=== PATIENT | male | born 1975 | race Caucasian/White ===

== ENCOUNTER → 2016-07-05 | Outpatient (CLI) | payer OTHER ==
--- NOTE | 2016-07-05 14:24 | XR ---
EXAMINATION TYPE: XR chest 2V DATE OF EXAM: 07/05/2016 1:55 PM COMPARISON: Prior chest x-ray 28 September 2014 HISTORY: COPD TECHNIQUE: Frontal and lateral views of the chest are obtained. FINDINGS: There is no focal air space opacity, pleural effusion, or pneumothorax seen. The cardiac silhouette size is within normal limits. Prominent lung volumes are again noted. There is a spinal curvature as on previous exam. The osseous structures are intact. IMPRESSION: No acute cardiopulmonary process.
== END ==
LOC: RADXRMAIN 13:47
PROVIDERS: ATTEND Internal Medicine Sleep Medicine
DX: J44.9 Chronic obstructive pulmonary disease, unspecified (principal)
CPT/HCPCS: 71020

== ENCOUNTER 2020-06-24 23:46 | Inpatient (IN) | payer OTHER ==
[2020-06-25] MEDS ORDERED: KETOROLAC 15 MG/ML 1 ML VIAL IVP STA (00:05)
[2020-06-25] MEDS ORDERED: MORPHINE SULFATE 4 MG/ML SYRINGE IV STA (00:05)
[2020-06-25] MEDS ORDERED: ONDANSETRON 4 MG/2 ML VIAL IVP STA (00:05)
[2020-06-25] MEDS ORDERED: SODIUM CHLORIDE 0.9% 1,000 ML IV STA (00:05)
--- NOTE | 2020-06-25 00:39 | ED ---
Abdominal Pain HPI - General Chief Complaint: Abdominal Pain Stated Complaint: abd pain Time Seen by Provider: 06/24/20 23:49 Source: EMS, RN notes reviewed, old records reviewed Mode of arrival: EMS Limitations: no limitations - History of Present Illness Initial Comments: This is a 44-year-old male DF for evaluation patient Dese for evaluation of darian re abdominal pain. Patient has persistent severe abdominal pain here in the ER he feels he was more sudden onset than anything mild nausea no vomiting, patient denies fever. Patient's pain again did start yesterday but was significantly worse tonight MD Complaint: abdominal pain -: days(s) Location: RUQ, RLQ Radiation: RLQ Severity: severe Severity scale (1-10): 8 Quality: stabbing Consistency: constant Improves With: nothing Worsens With: eating Context: other (none) Associated Symptoms: nausea Treatments Prior to Arrival: other (none) - Related Data Home Medications Medication Instructions Recorded Confirmed Diazepam [Valium] 10 mg PO BID PRN 09/28/14 06/25/20 HYDROcodone/APAP 10-325MG [[place] 1 tab PO Q6H PRN 09/28/14 06/25/20 10-325] Albuterol Nebulized [Ventolin 2.5 mg INHALATION RT-QID 06/25/20 06/25/20 Nebulized] Albuterol Sulfate [Proair Hfa] 2 puff INHALATION RT-Q4H PRN 06/25/20 06/25/20 Budesonide-Formot 160-4.5 Mcg 2 puff INHALATION RT-BID 06/25/20 06/25/20 [Symbicort 160-4.5 Mcg Inhaler] Cetirizine HCl 10 mg PO HS PRN 06/25/20 06/25/20 Lurasidone HCl [Latuda] 60 mg PO HS 06/25/20 06/25/20 Methylphenidate HCl [Ritalin] 20 mg PO TID 06/25/20 06/25/20 lisinopriL 20 mg PO DAILY 06/25/20 06/25/20 Previous Rx's Medication Instructions Recorded Acetaminophen Tab [Tylenol Tab] 1,000 mg PO Q6HR PRN #30 tablet 06/27/20 Amoxic-Pot Clav 875-125Mg 1 tab PO BID #10 tab 06/27/20 [Augmentin 875-125] Ibuprofen [Motrin] 600 mg PO Q8HR PRN #30 tab 06/27/20 Allergies Allergy/AdvReac Type Severity Reaction Status Date / Time No Known Allergies Allergy Verified 06/25/20 07:48 Review of Systems ROS Statement: Those systems with pertinent positive or pertinent negative responses have been documented in the HPI. ROS Other: All systems not noted in ROS Statement are negative. Past Medical History Past Medical History: COPD Additional Past Medical History / Comment(s): chronic back pain History of Any Multi-Drug Resistant Organisms: None Reported Additional Past Surgical History / Comment(s): abdominal surgery- removal of for eign object. Past Psychological History: No Psychological Hx Reported Smoking Status: Current every day smoker Past Alcohol Use History: Rare Past Drug Use History: None Reported - Past Family History Mother Family Medical History: Diabetes Mellitus Father Family Medical History: No Reported History Additional Family Medical History / Comment(s): Father is healthy General Exam Limitations: no limitations General appearance: alert, in no apparent distress, anxious Head exam: Present: atraumatic, normocephalic, normal inspection Eye exam: Present: normal appearance, PERRL, EOMI. Absent: scleral icterus, conjunctival injection, periorbital swelling ENT exam: Present: normal exam, mucous membranes moist Neck exam: Present: normal inspection. Absent: tenderness, meningismus, lymphadenopathy Respiratory exam: Present: normal lung sounds bilaterally. Absent: respiratory distress, wheezes, rales, rhonchi, stridor Cardiovascular Exam: Present: regular rate, normal rhythm, normal heart sounds. Absent: systolic murmur, diastolic murmur, rubs, gallop, clicks GI/Abdominal exam: Present: soft, tenderness (Right lower quadrant), normal bowel sounds. Absent: distended, guarding, rebound, rigid Extremities exam: Present: normal inspection, full ROM, normal capillary refill. Absent: tenderness, pedal edema, joint swelling, calf tenderness Back exam: Present: normal inspection Neurological exam: Present: alert, oriented X3, CN II-XII intact Psychiatric exam: Present: normal affect, normal mood Skin exam: Present: warm, dry, intact, normal color. Absent: rash Course Vital Signs 06/25/20 06/25/20 06/25/20 00:00 06:37 11:46 Temperature 98 F 99 F 98.3 F Pulse Rate 80 94 Pulse Rate [ 78 Pulse Oximetery ] Respiratory 19 18 18 Rate Blood Pressure 122/72 113/67 Blood Pressure 110/64 [Right Arm] O2 Sat by Pulse 98 97 96 Oximetry 06/25/20 15:47 Temperature 99.5 F Pulse Rate Pulse Rate [ 88 Pulse Oximetery ] Respiratory 16 Rate Blood Pressure Blood Pressure 121/69 [Right Arm] O2 Sat by Pulse 93 L Oximetry - Reevaluation(s) Reevaluation #1: Medical record is reviewed Patient has persistent pain here in the ER Spoke patient regarding findings and results questions answered - Consultations Consultation #1: Spoke with on-call surgery who will admit the patient Medical Decision Making - Medical Decision Making Mailed ER with severe abdominal pain. Patient has acute appendicitis, patient placed on antibiotics control will be admitted for surgical evaluation and management - Lab Data Result diagrams: 06/27/20 17:11 06/27/20 07:27 Lab Results 06/25/20 06/25/20 06/25/20 Range/Units 00:13 00:13 02:12 WBC 15.1 H (3.8-10.6) k/uL RBC 4.23 L (4.30-5.90) m/uL Hgb 13.0 (13.0-17.5) gm/dL Hct 37.5 L (39.0-53.0) % MCV 88.6 (80.0-100.0) fL MCH 30.7 (25.0-35.0) pg MCHC 34.7 (31.0-37.0) g/dL RDW 13.1 (11.5-15.5) % Plt Count 231 (150-450) k/uL MPV 7.7 Neutrophils % 92 % Lymphocytes % 5 % Monocytes % 3 % Eosinophils % 0 % Basophils % 0 % Neutrophils # 13.9 H (1.3-7.7) k/uL Lymphocytes # 0.7 L (1.0-4.8) k/uL Monocytes # 0.5 (0-1.0) k/uL Eosinophils # 0.0 (0-0.7) k/uL Basophils # 0.0 (0-0.2) k/uL Sodium 136 L (137-145) mmol/L Potassium 4.1 (3.5-5.1) mmol/L Chloride 104 (98-107) mmol/L Carbon Dioxide 23 (22-30) mmol/L Anion Gap 9 mmol/L BUN 17 (9-20) mg/dL Creatinine 1.08 (0.66-1.25) mg/dL Est GFR (CKD-EPI)AfAm >90 (>60 ml/min/1.73 sqM) Est GFR (CKD-EPI)NonAf 82 (>60 ml/min/1.73 sqM) Glucose 114 H (74-99) mg/dL Calcium 9.4 (8.4-10.2) mg/dL Total Bilirubin 0.7 (0.2-1.3) mg/dL AST 21 (17-59) U/L ALT 20 (4-49) U/L Alkaline Phosphatase 64 (38-126) U/L Total Protein 6.4 (6.3-8.2) g/dL Albumin 3.8 (3.5-5.0) g/dL Amylase 46 (30-110) U/L Lipase 28 (23-300) U/L Urine Color Yellow Urine Appearance Cloudy (Clear) Urine pH 7.0 (5.0-8.0) Ur Specific [place] 1.050 H (1.001-1.035) Urine Protein Trace H (Negative) Urine Glucose (UA) Negative (Negative) Urine Ketones Negative (Negative) Urine Blood Negative (Negative) Urine Nitrite Negative (Negative) Urine Bilirubin Negative (Negative) Urine Urobilinogen <2.0 (<2.0) mg/dL Ur Leukocyte Esterase Negative (Negative) Urine RBC 4 (0-5) /hpf Urine WBC 2 (0-5) /hpf Urine Bacteria Few H (None) /hpf Urine Mucus Occasional H (None) /hpf Coronavirus (PCR) (Not Detectd) 06/25/20 Range/Units 02:12 WBC (3.8-10.6) k/uL RBC (4.30-5.90) m/uL Hgb (13.0-17.5) gm/dL Hct (39.0-53.0) % MCV (80.0-100.0) fL MCH (25.0-35.0) pg MCHC (31.0-37.0) g/dL RDW (11.5-15.5) % Plt Count (150-450) k/uL MPV Neutrophils % % Lymphocytes % % Monocytes % % Eosinophils % % Basophils % % Neutrophils # (1.3-7.7) k/uL Lymphocytes # (1.0-4.8) k/uL Monocytes # (0-1.0) k/uL Eosinophils # (0-0.7) k/uL Basophils # (0-0.2) k/uL Sodium (137-145) mmol/L Potassium (3.5-5.1) mmol/L Chloride (98-107) mmol/L Carbon Dioxide (22-30) mmol/L Anion Gap mmol/L BUN (9-20) mg/dL Creatinine (0.66-1.25) mg/dL Est GFR (CKD-EPI)AfAm (>60 ml/min/1.73 sqM) Est GFR (CKD-EPI)NonAf (>60 ml/min/1.73 sqM) Glucose (74-99) mg/dL Calcium (8.4-10.2) mg/dL Total Bilirubin (0.2-1.3) mg/dL AST (17-59) U/L ALT (4-49) U/L Alkaline Phosphatase (38-126) U/L Total Protein (6.3-8.2) g/dL Albumin (3.5-5.0) g/dL Amylase (30-110) U/L Lipase (23-300) U/L Urine Color Urine Appearance (Clear) Urine pH (5.0-8.0) Ur Specific [place] (1.001-1.035) Urine Protein (Negative) Urine Glucose (UA) (Negative) Urine Ketones (Negative) Urine Blood (Negative) Urine Nitrite (Negative) Urine Bilirubin (Negative) Urine Urobilinogen (<2.0) mg/dL Ur Leukocyte Esterase (Negative) Urine RBC (0-5) /hpf Urine WBC (0-5) /hpf Urine Bacteria (None) /hpf Urine Mucus (None) /hpf Coronavirus (PCR) Not Detected (Not Detectd) - Radiology Data Radiology results: report reviewed (CT abdomen and pelvis positive for acute appendicitis), image reviewed Disposition Clinical Impression: Abdominal pain, Acute appendicitis Disposition: ADMITTED IP TO THIS [facility] Condition: Good Is patient prescribed a controlled substance at d/c from ED?: No
[2020-06-25 00:53] LABS: Basophils % (A) 0 %; Eosinophils % (A) 0 %; HCT 37.5 % (39.0-53.0); Lymphocytes # (A) 0.7 k/uL (1.0-4.8); Lymphocytes % (A) 5 %; MCH 30.7 pg (25.0-35.0); MCHC 34.7 g/dL (31.0-37.0); MCV 88.6 fL (80.0-100.0); Mean Platelet Volume 7.7; Monocytes # (A) 0.5 k/uL (0-1.0); Monocytes % (A) 3 %; Neutrophils # (A) 13.9 k/uL (1.3-7.7); Neutrophils % (A) 92 %; Platelet Count 231 k/uL (150-450); RBC 4.23 m/uL (4.30-5.90); RDW 13.1 % (11.5-15.5); WBC 15.1 k/uL (3.8-10.6)
--- NOTE | 2020-06-25 01:27 | CT ---
EXAM: CT Abdomen and Pelvis With Intravenous Contrast CLINICAL HISTORY: Pain. TECHNIQUE: Axial computed tomography images of the abdomen and pelvis with intravenous contrast. CTDI is with 20.67 mGy and DLP is 963.9 mGy-cm. This CT exam was performed using one or more of the following dose reduction techniques: automated exposure control, adjustment of the mA and/or kV according to patient size, and/or use of iterative reconstruction technique. Coronal and sagittal reformatted images were created and reviewed. COMPARISON: No relevant prior studies available. FINDINGS: Lung bases: Unremarkable. No mass. No consolidation. ABDOMEN: Liver: Unremarkable. No mass. Gallbladder and bile ducts: Unremarkable. No calcified stones. No ductal dilation. Pancreas: Unremarkable. No mass. No ductal dilation. Spleen: Unremarkable. No splenomegaly. Adrenals: Unremarkable. No mass. Kidneys and ureters: Unremarkable. No solid mass. No hydronephrosis. Stomach and bowel: Unremarkable. No obstruction. No mucosal thickening. PELVIS: Appendix: The distal portion of the appendix is abnormally enlarged at 11 mm in thickness and there is inflammation in the surrounding right lower quadrant fat. The findings are consistent with acute appendicitis. No abscess or extraluminal air. Bladder: Unremarkable. No mass. Reproductive: Unremarkable as visualized. ABDOMEN and PELVIS: Intraperitoneal space: See above. Bones/joints: No acute fracture. No dislocation. Soft tissues: Unremarkable. Vasculature: Unremarkable. No abdominal aortic aneurysm. Lymph nodes: Unremarkable. No enlarged lymph nodes. IMPRESSION: Acute appendicitis. <MYCVCSECTION> Communications: 06/25/20 01:29 Call Doctor Regarding Appendicitis, called Dr. MCNAMARA on 06/25 01:28 (-04:00)
[2020-06-25] MEDS ORDERED: ACETAMINOPHEN TAB 325 MG TAB PO PRN (01:29)
[2020-06-25] MEDS ORDERED: AMPICILLIN-SULBACTAM 3 GM in SODIUM CHLORIDE 0.9% 100 ML IVPB STA (01:29)
[2020-06-25] MEDS ORDERED: NALOXONE 0.4 MG/ML 1 ML VIAL IV PRN (01:29)
[2020-06-25 01:32] LABS: ALT 20 U/L (4-49); AST 21 U/L (17-59); African American GFR (CKD) >90 (>60 ml/min/1.73 sqM); Albumin 3.8 g/dL (3.5-5.0); Alkaline Phosphatase 64 U/L (38-126); Amylase 46 U/L (30-110); Anion Gap 9 mmol/L; Blood Urea Nitrogen 17 mg/dL (9-20); Calcium 9.4 mg/dL (8.4-10.2); Carbon Dioxide 23 mmol/L (22-30); Chloride 104 mmol/L (98-107); Glucose 114 mg/dL (74-99); Lipase 28 U/L (23-300); Non-African American GFR(CKD) 82 (>60 ml/min/1.73 sqM); Potassium 4.1 mmol/L (3.5-5.1); Sodium 136 mmol/L (137-145); Total Bilirubin 0.7 mg/dL (0.2-1.3); Total Protein 6.4 g/dL (6.3-8.2)
[2020-06-25] MEDS: MORPHINE SULFATE 4 MG/ML SYRINGE IV PRN ×3 (02:07→12:04)
[2020-06-25] MEDS: SODIUM CHLORIDE 0.9% 1,000 ML IV SCH ×3 (02:07→20:21)
[2020-06-25 02:26] LABS: Appearance,Urine Cloudy (Clear); Bacteria,Urine Few /hpf; Bilirubin,Urine Negative (Negative); Blood,Urine Negative (Negative); Color,Urine Yellow; Glucose,Urine (UA) Negative (Negative); Ketones,Urine Negative (Negative); Leukocyte Esterase,Urine Negative (Negative); Mucus,Urine Occasional /hpf; Nitrite,Urine Negative (Negative); Protein,Urine Trace (Negative); RBC,Urine 4 /hpf (0-5); Urobilinogen,Urine <2.0 mg/dL (<2.0); WBC,Urine 2 /hpf (0-5)
[2020-06-25] MEDS: AMPICILLIN-SULBACTAM 3 GM in SODIUM CHLORIDE 0.9% 100 ML IVPB SCH ×2 (09:31→23:20)
[2020-06-25] MEDS: ONDANSETRON 4 MG/2 ML VIAL IVP PRN ×2 (09:32→16:18)
[2020-06-25] MEDS ORDERED: GABAPENTIN 300 MG CAP PO PRN (15:30)
[2020-06-25] MEDS ORDERED: TAMSULOSIN 0.4 MG CAP.ER.24H PO PRN (15:30)
[2020-06-25] MEDS ORDERED: MELOXICAM 7.5 MG TAB PO PRN (15:33)
[2020-06-25] MEDS ORDERED: HEPARIN SODIUM,PORCINE/PF 5,000 UNIT/0.5 ML SYRINGE SQ PRN (15:33)
[2020-06-25] MEDS ORDERED: ACETAMINOPHEN TAB 500 MG TAB PO PRN (15:33)
--- NOTE | 2020-06-25 15:36 | P.GSHP ---
History of Present Illness H&P Date: 06/25/20 CHIEF COMPLAINT: Right lower quadrant abdominal pain with appendicitis for over 3 days. HISTORY OF PRESENT ILLNESS: The patient is a previously healthy 44-year-old male who presents with over 3 day history of periumbilical with right lower quadrant abdominal pain that is crampy dull ache in nature. No reports of prior abdominal pain. He states the intensity of the pain is moderate but has improved today. He presented with CT abdomen and pelvis consistent with dilated appendix suspicious for appendicitis hence general surgery admission. PAST MEDICAL HISTORY: See list and reviewed PAST SURGICAL HISTORY: See list and reviewed CURRENT MEDICATIONS: See list and reviewed ALLERGIES: See list and reviewed SOCIAL HISTORY: See list and reviewed FAMILY HISTORY: See list and reviewed REVIEW OF ORGAN SYSTEMS: CONSTITUTIONAL: No fever, no chills. Denies recent weight loss. HEENT: Denies any trouble with vision, hearing or nosebleeds. No difficulty swallowing. LYMPHATIC: The patient denies any lumps and bumps around the neck. ENDOCRINE: Denies any thyroid disorders. Denies any blood sugar glucose intolerance. RESPIRATORY: Denies shortness of breath including chronic cough. CARDIOVASCULAR: Denies history of chest pain with exertion. GASTROINTESTINAL: Denies regurgitation of bile at night as well as intermittent nausea. No blood in stools. GENITOURINARY: Denies any blood in urine or increased urinary frequency. MUSCULOSKELETAL: Denies current joint arthritis. NEUROLOGIC: Denies any numbness or tingling along the distal extremities. No seizure disorders or headaches. PSYCHIATRIC: Denies any depression or suicidal ideation. HEMATOLOGIC: Denies any abnormal bleeding or bruising. PHYSICAL EXAMINATION: GENERAL: A 44-ear-old male in no acute distress. Pleasant. HEENT: No sclera icterus. Extraocular movements grossly intact. Moist buccal mucosa. Head is atraumatic, normocephalic. Hears conversational speech. No nasal drainage. NECK: Supple without lymphadenopathy. No JV distention. CHEST: Non-labored respirations and equal bilateral excursions. CARDIOVASCULAR: Regular rate and rhythm. Palpable 2+ radial pulses. ABDOMEN: Soft, tender at the right lower quadrant without guarding. A midline incision MUSCULOSKELETAL: No clubbing, cyanosis or edema. NEUROLOGIC: No focal or lateralizing signs. PSYCH: Appropriate affect. Alert and oriented to person, place and time. SKIN: Well perfused. Good skin turgor. LABS: Reviewed. White blood cell count elevated over 15,000. STUDIES: CT of the abdomen and pelvis independently reviewed with findings consistent with appendicitis. ASSESSMENT: 1. Right lower quadrant pain. 2. Appendicitis 3. Leukocytosis. PLAN: 1. I have discussed benefits and risks of robotic appendectomy. 2. Bilateral SCDs. 3. Antibiotics intravenous to address moderate leukocytosis with underlying sepsis Thank you very much for allowing me to participate in the care of your patient. Past Medical History Past Medical History: COPD, GI Bleed, Hypertension Additional Past Medical History / Comment(s): Chronic low back pain with bilateral sciatica, DDD, lower GI bleed. History of Any Multi-Drug Resistant Organisms: None Reported Additional Past Surgical History / Comment(s): abdominal surgery- removal of foreign object, colonoscopy. Past Anesthesia/Blood Transfusion Reactions: No Reported Reaction Smoking Status: Current every day smoker - Past Family History Mother Family Medical History: Diabetes Mellitus Father Family Medical History: No Reported History Additional Family Medical History / Comment(s): Father is healthy Medications and Allergies Home Medications Medication Instructions Recorded Confirmed Type Diazepam [Valium] 10 mg PO BID PRN 09/28/14 06/25/20 History HYDROcodone/APAP 10-325MG [[place] 1 tab PO Q6H PRN 09/28/14 06/25/20 History 10] Albuterol Nebulized [Ventolin 2.5 mg INHALATION RT-QID 06/25/20 06/25/20 History Nebulized] Albuterol Sulfate [Proair Hfa] 2 puff INHALATION RT-Q4H PRN 06/25/20 06/25/20 History Budesonide-Formot 160-4.5 Mcg 2 puff INHALATION RT-BID 06/25/20 06/25/20 History [Symbicort 160-4.5 Mcg Inhaler] Cetirizine HCl 10 mg PO HS PRN 06/25/20 06/25/20 History Lurasidone HCl [Latuda] 60 mg PO HS 06/25/20 06/25/20 History Methylphenidate HCl [Ritalin] 20 mg PO TID 06/25/20 06/25/20 History Naloxone HCl [Narcan] 1 spray EA NOSTRIL ONCE PRN 06/25/20 06/25/20 History lisinopriL [Lisinopril] 20 mg PO DAILY 06/25/20 06/25/20 History Allergies Allergy/AdvReac Type Severity Reaction Status Date / Time No Known Allergies Allergy Verified 06/25/20 07:48 Surgical - Exam Vital Signs Temp Pulse Resp BP Pulse Ox 98 F 80 19 122/72 98 06/25/20 00:00 06/25/20 00:00 06/25/20 00:00 06/25/20 00:00 06/25/20 00:00 Results - Labs 06/25/20 00:13 06/25/20 00:13 Abnormal Lab Results - Last 24 Hours (Table) 06/25/20 06/25/20 06/25/20 Range/Units 00:13 00:13 02:12 WBC 15.1 H (3.8-10.6) k/uL RBC 4.23 L (4.30-5.90) m/uL Hct 37.5 L (39.0-53.0) % Neutrophils # 13.9 H (1.3-7.7) k/uL Lymphocytes # 0.7 L (1.0-4.8) k/uL Sodium 136 L (137-145) mmol/L Glucose 114 H (74-99) mg/dL Ur Specific [place] 1.050 H (1.001-1.035) Urine Protein Trace H (Negative) Urine Bacteria Few H (None) /hpf Urine Mucus Occasional H (None) /hpf Diabetes panel 06/25/20 Range/Units 00:13 Sodium 136 L (137-145) mmol/L Potassium 4.1 (3.5-5.1) mmol/L Chloride 104 (98-107) mmol/L Carbon Dioxide 23 (22-30) mmol/L BUN 17 (9-20) mg/dL Creatinine 1.08 (0.66-1.25) mg/dL Glucose 114 H (74-99) mg/dL Calcium 9.4 (8.4-10.2) mg/dL AST 21 (17-59) U/L ALT 20 (4-49) U/L Alkaline Phosphatase 64 (38-126) U/L Total Protein 6.4 (6.3-8.2) g/dL Albumin 3.8 (3.5-5.0) g/dL Calcium panel 06/25/20 Range/Units 00:13 Calcium 9.4 (8.4-10.2) mg/dL Albumin 3.8 (3.5-5.0) g/dL Pituitary panel 06/25/20 Range/Units 00:13 Sodium 136 L (137-145) mmol/L Potassium 4.1 (3.5-5.1) mmol/L Chloride 104 (98-107) mmol/L Carbon Dioxide 23 (22-30) mmol/L BUN 17 (9-20) mg/dL Creatinine 1.08 (0.66-1.25) mg/dL Glucose 114 H (74-99) mg/dL Calcium 9.4 (8.4-10.2) mg/dL Adrenal panel 06/25/20 Range/Units 00:13 Sodium 136 L (137-145) mmol/L Potassium 4.1 (3.5-5.1) mmol/L Chloride 104 (98-107) mmol/L Carbon Dioxide 23 (22-30) mmol/L BUN 17 (9-20) mg/dL Creatinine 1.08 (0.66-1.25) mg/dL Glucose 114 H (74-99) mg/dL Calcium 9.4 (8.4-10.2) mg/dL Total Bilirubin 0.7 (0.2-1.3) mg/dL AST 21 (17-59) U/L ALT 20 (4-49) U/L Alkaline Phosphatase 64 (38-126) U/L Total Protein 6.4 (6.3-8.2) g/dL Albumin 3.8 (3.5-5.0) g/dL
[2020-06-25] MEDS ORDERED: IV FLUID CONTINUATION 1,000 ML IV ONE (16:01)
[2020-06-25] MEDS ORDERED: LACTATED RINGERS 1,000 ML IV SCH (17:00)
[2020-06-25] MEDS ORDERED: LIDOCAINE 1%-EPI 1:100,000 20 ML VIAL SQ ONE (17:13)
[2020-06-25] MEDS ORDERED: fentaNYL (PF) 50 MCG/ML 2 ML AMP ONE (17:16)
[2020-06-25] MEDS ORDERED: GLYCOPYRROLATE 0.2 MG/ML 2 ML VIAL ONE (17:16)
[2020-06-25] MEDS ORDERED: PROPOFOL 10 MG/ML 20 ML VIAL IV ONE (17:16)
[2020-06-25] MEDS ORDERED: SUCCINYLCHOLINE CHLORIDE 100 MG/5 ML SYR IV ONE (17:16)
[2020-06-25] MEDS ORDERED: MIDAZOLAM 2 MG/2 ML VIAL ONE (17:16)
[2020-06-25] MEDS ORDERED: LIDOCAINE 1% INJ 10MG/ML (20 ML MDV) ONE (17:16)
[2020-06-25] MEDS ORDERED: HYDROmorphone (PF) 1 MG/ML ONE (17:16)
[2020-06-25] MEDS ORDERED: KETAMINE 10 MG/ML 20 ML VIAL ONE (17:16)
[2020-06-25] MEDS ORDERED: KETOROLAC 15 MG/ML 1 ML VIAL ONE (17:16)
[2020-06-25] MEDS ORDERED: ROCURONIUM 10 MG/ML (5 ML VIAL) IV ONE (17:16)
[2020-06-25] MEDS ORDERED: NEOSTIGMINE 1 MG/ML 10 ML VIAL ONE (17:16)
[2020-06-25] MEDS ORDERED: LACTATED RINGERS 1,000 ML IV ONE (17:45)
[2020-06-25] MEDS ORDERED: LORATADINE 10 MG TAB PO PRN (19:01)
[2020-06-25] MEDS ORDERED: diazePAM 5 MG TAB PO PRN (19:01)
[2020-06-25] MEDS ORDERED: ALBUTEROL NEBULIZED 2.5 MG/3 ML INHALATION PRN (19:01)
[2020-06-25] MEDS ORDERED: NON FORMULARY DRUG (Naloxone Hcl [Narcan] 4 MG Spray) EA NOSTRIL PRN (19:01)
[2020-06-25] MEDS ORDERED: HYDROmorphone 1 MG/ML 1 ML SYRINGE IVP PRN (19:03)
--- NOTE | 2020-06-25 19:16 | P.OP ---
Date of Procedure: 06/25/20 Description of Procedure: SURGEON: GENEVIEVE PELAEZ MD Preoperative Diagnosis: 1. Acute appendicitis 2. Right lower quadrant abdominal pain 3. Chronic obstructive pulmonary disease 4. Chronic pain syndrome 5. Depressive disorder 6. Generalized anxiety disorder 7. Hypertensive heart disease 8. Tobacco abuse disorder Postoperative Diagnosis: 1. Acute retrocecal appendicitis with rupture, localized abscess with peritonitis and sepsis 2. Right lower quadrant abdominal pain 3. Chronic obstructive pulmonary disease 4. Chronic pain syndrome 5. Depressive disorder 6. Generalized anxiety disorder 7. Hypertensive heart disease 8. Tobacco abuse disorder 9. Fevers Procedure(s) Performed: 1. Robotic-assisted daVinci Xi laparoscopic appendectomy Anesthesia: GETA, local Estimated Blood Loss (ml): 5 Pathology: other (appendix), aerobic and anaerobic culture Condition: stable Disposition: floor Operative Findings: 1. Acute retrocecal appendicitis with localized rupture at the tip with peritonitis 2. Terminal ileum unremarkable 3. Cecum unremarkable 4. Small indirect left inguinal hernia 5. No intra-abdominal adhesions from prior abdominal exploratory laparotomy INDICATIONS: The patient is a 44-year-old male who presents with acute appendicitis. Benefits and risks, including infection, open surgery, and bleeding for additional surgery was discussed at length. Informed consent was obtained. All questions of the patient and family were answered. DESCRIPTION: The patient was transferred to the operating room and placed in supine position. The patient had previously voided. The abdomen was then prepped and draped in standard sterile fashion as [place]an was placed along the abdomen to minimize any contamination of skin floor. After a timeout protocol was performed, attention was then brought to the left upper quadrant whereby a 0 degree 5 mm laparoscopic trocar entry was performed. The abdominal cavity was entered and insufflated to 12 mmHg pressure, which was tolerated well. Diagnostic laparoscopy demonstrated no injury to bowel, viscera or mesentery. Feculent localized abscess was identified along the right lower quadrant at the cecum. Next a robotic 8-mm trocar was placed along the left lower quadrant, 10-cm lateral to the midline. A 12 mm port was placed along the left upper quadrant and another 8-mm port left lateral abdominal wall. Ports were placed 8 cm apart from each other including 15-20 cm away from the target anatomy of the right pelvis. The patient was then placed in Trendelenburg position, at least 14 down and right side up at least 7. The robotic da Rhoda XI system was primed and docked from the left side of the patient. Using atraumatic graspers and vessel sealer, the robotic system was docked and primed as described. Instruments were interchanged by the transition assistant including graspers, robotic stapler and vessel sealer. Next, attention was brought to identify the cecum. A systematic view within the abdominal cavity was started with the small bowel which was unremarkable. The base of the cecum was unremarkable. Serositis from ruptured appendicitis was identified with peritonitis. Left inguinal hernia, indirect, 5 mm was found. The right groin was unremarkable. The appendix was retrocecal coursing towards right upper quadrant behind the ascending colon with additional dissection required. Active stool was emanating from the tip of a ruptured appendicitis which was retrocecal coursing towards the right upper quadrant posterior to the cecum. Additional dissection was required to safely free the appendix from the surrounding tissue. Blue 45 mm robotic staple loads were fired along the base of the appendix. The staple line was hemostatic. Hemostasis was checked prior to undocking the robot. The abdomen was irrigated until clear, 500 mL normal saline. The robot was undocked. I re-scrubbed into the case. During the case, patient's temperature was checked at 101.3F with active fever. The specimen was removed from the abdominal cavity with an Endo Catch bag through the 12 mm trocar at the left upper quadrant. The fascial defect was less than 8 mm in size. All instruments and pneumoperitoneum were evacuated from the abdominal cavity. Local anesthetic was infiltrated to all wounds for postop analgesia. All incisions were also cleansed with diluted hydrogen peroxide. The incisions were closed with 4-0 Monocryl. The left upper quadrant trocar site was covered with OptiFoam without glue. Exofin glue was applied to the rest of the skin incisions. The patient had tolerated the procedure well. The patient was extubated successfully. The patient was transferred to the postanesthesia care unit in stable condition.
[2020-06-25] MEDS: SYMBICORT 160-4.5 MCG INHALER INHALATION SCH (19:24)
[2020-06-25] MEDS: ALBUTEROL NEBULIZED 2.5 MG/3 ML INHALATION SCH (19:24)
[2020-06-25] MEDS: metroNIDAZOLE-NS PMX 500 MG in SALINE 1 100ML.BAG IVPB SCH (20:19)
[2020-06-25] MEDS: ONDANSETRON 4 MG/2 ML VIAL IVP SCH (20:26)
[2020-06-25] MEDS: KETOROLAC 15 MG/ML 1 ML VIAL IVP SCH (20:27)
[2020-06-25] MEDS: LURASIDONE 20 MG TAB PO SCH (21:57)
[2020-06-25] MEDS: PIPERACILLIN-TAZOBACTAM 3.375 GM in SODIUM CHLORIDE 0.9% 100 ML IVPB SCH (22:01)
[2020-06-25] MEDS ORDERED: ACETAMINOPHEN IV (For NPO) 1,000 MG in EMPTY BAG 1 BAG IVPB ONE (22:30)
[2020-06-26] MEDS: metroNIDAZOLE-NS PMX 500 MG in SALINE 1 100ML.BAG IVPB SCH ×4 (00:18→20:15)
[2020-06-26] MEDS: ONDANSETRON 4 MG/2 ML VIAL IVP SCH ×4 (00:19→18:19)
[2020-06-26] MEDS: KETOROLAC 15 MG/ML 1 ML VIAL IVP SCH ×4 (02:52→20:16)
[2020-06-26] MEDS: PIPERACILLIN-TAZOBACTAM 3.375 GM in SODIUM CHLORIDE 0.9% 100 ML IVPB SCH ×3 (04:17→22:21)
[2020-06-26] MEDS: ACETAMINOPHEN TAB 500 MG TAB PO SCH ×3 (05:25→18:18)
[2020-06-26] MEDS ORDERED: HYDROmorphone 0.5 MG/0.5 ML SYRINGE IVP PRN (07:00)
[2020-06-26] MEDS ORDERED: METHYLPHENIDATE HCL 10 MG TAB PO SCH (07:00)
[2020-06-26] MEDS ORDERED: fentaNYL (PF) 50 MCG/ML 2 ML AMP IV PRN (07:00)
[2020-06-26] MEDS: MORPHINE SULFATE 4 MG/ML SYRINGE IV PRN ×3 (07:09→17:26)
[2020-06-26] MEDS: PANTOPRAZOLE 40 MG/10 ML VIAL IV SCH (07:26)
[2020-06-26] MEDS: METHYLPHENIDATE HCL 10 MG TAB PO SCH ×3 (07:27→17:27)
[2020-06-26] MEDS: lisinopriL 20 MG TAB PO SCH (07:28)
[2020-06-26] MEDS: ENOXAPARIN 30 MG/0.3 ML SYRINGE SQ SCH (07:28)
[2020-06-26] MEDS: ALBUTEROL NEBULIZED 2.5 MG/3 ML INHALATION SCH ×4 (09:30→20:37)
[2020-06-26] MEDS: SYMBICORT 160-4.5 MCG INHALER INHALATION SCH ×2 (09:30→20:37)
[2020-06-26 10:00] LABS: African American GFR (CKD) 69.8 (60.0-200.0); Albumin 3.5 g/dL (3.80-4.90); Albumin/Globulin Ratio 1.94 (1.60-3.17); Anion Gap 6.8 mmol/L (4.00-12.00); BUN/Creat Ratio 14.29 Ratio (12.00-20.00); Calcium 8.3 mg/dL (8.7-10.3); Carbon Dioxide 24.2 mmol/L (21.6-31.8); Globulin 1.8 g/dL (1.6-3.3); Non-African American GFR(CKD) 60.2 (60.0-200.0); Potassium 4.2 mmol/L (3.5-5.5); Total Bilirubin 0.9 mg/dL (0.3-1.2); Total Protein 5.3 g/dL (6.2-8.2)
[2020-06-26] MEDS: SODIUM CHLORIDE 0.9% 1,000 ML IV SCH ×3 (10:00→20:08)
[2020-06-26 11:11] LABS: Basophils % (A) 0 %; Eosinophils # (A) 0.1 k/uL (0-0.7); Eosinophils % (A) 1 %; HGB 12.3 gm/dL (13.0-17.5); Lymphocytes % (A) 9 %; MCH 31.1 pg (25.0-35.0); MCHC 34.1 g/dL (31.0-37.0); MCV 91.2 fL (80.0-100.0); Mean Platelet Volume 8.3; Monocytes # (A) 0.5 k/uL (0-1.0); Monocytes % (A) 5 %; Neutrophils # (A) 9.7 k/uL (1.3-7.7); Neutrophils % (A) 85 %; Platelet Count 191 k/uL (150-450); RBC 3.95 m/uL (4.30-5.90); RDW 13.3 % (11.5-15.5); WBC 11.5 k/uL (3.8-10.6)
[2020-06-26] MEDS: HYDROcodone/APAP 10-325MG 1 EACH TAB PO PRN ×2 (15:10→22:20)
--- NOTE | 2020-06-26 21:21 | P.PN ---
Subjective Progress Note Date: 06/26/20 CHIEF COMPLAINT: Acute ruptured appendicitis with sepsis HISTORY OF PRESENT ILLNESS: The patient is a 44-year-old male status post ruptured appendicitis with sepsis. He is postoperative day 1. His pain has moderately improved since surgery. He is tolerating diet. ROS: No reports of nausea and vomiting. No chills. No new chest pain. No productive sputum. He has elevated temperature 99.2 PHYSICAL EXAM: VITAL SIGNS: Reviewed CONSTITUTIONAL: Well developed and in no acute distress. EYES: Conjuctivae without sclera icterus. Extraocular movements grossly intact. HEAD, EARS, NOSE, THROAT: Moist buccal mucosa. Head is atraumatic, normocephalic. Hears conversational speech. No nasal drainage. NECK: Supple. No thyroidomegaly. RESPIRATORY: Non-labored respirations and equal bilateral excursions. CARDIOVASCULAR: Palpable 2+ radial pulses. Regular rate. Regular rhythm. ABDOMEN: Incisions clean dry and intact. Soft. No peritonitis. Appropriate left upper quadrant tenderness. MUSCULOSKELETAL: No gross deformity of the lower extremities noted. No clubbing. No cyanosis. SKIN: Good skin turgor. Well perfused. NEUROLOGIC: Cranial nerves II through XII grossly intact. No focal or lateralizing signs. PSYCH: Appropriate affect. Alert and oriented to person, place and time. CLINICAL LABS: White blood cell down from 15,000 to 11,000. ASSESSMENT: 1. Acute ruptured appendicitis with sepsis PLAN: 1. Continue IV antibiotics. 2. Advance diet as tolerated 3. Disposition pending normal WBC Objective - Vital Signs Vital signs: Vital Signs Temp 98.7 F 06/26/20 14:00 Pulse 78 06/26/20 20:47 Resp 16 06/26/20 20:47 BP 120/73 06/26/20 14:00 Pulse Ox 98 06/26/20 12:24 Intake & Output 06/26/20 06/26/20 06/27/20 06:59 18:59 06:59 Intake Total 550 Balance 550 Weight 90.718 kg Intake: IV 100 Oral 450 Other: # Voids 2 1 - Labs CBC & Chem 7: 06/26/20 05:18 06/26/20 05:18 Labs: Abnormal Lab Results - Last 24 Hours (Table) 06/26/20 06/26/20 Range/Units 05:18 05:18 WBC 11.5 H (3.8-10.6) k/uL RBC 3.95 L (4.30-5.90) m/uL Hgb 12.3 L (13.0-17.5) gm/dL Hct 36.0 L (39.0-53.0) % Neutrophils # 9.7 H (1.3-7.7) k/uL Glucose 122 H (70-110) mg/dL Calcium 8.3 L (8.7-10.3) mg/dL Total Protein 5.3 L (6.2-8.2) g/dL Albumin 3.50 L (3.80-4.90) g/dL Microbiology - Last 24 Hours (Table) 06/25/20 12:44 Gram Stain - Preliminary Appendix Wound Culture - Preliminary Gram Neg Bacilli 06/25/20 12:44 Anaerobic Culture - Preliminary Appendix Assessment and Plan (1) Ruptured appendicitis Current Visit: Yes Status: Acute Code(s): K35.32 - ACUTE APPENDICITIS WITH PERF AND LOC PERITONITIS, W/O ABSCS SNOMED Code(s): 80042324 (2) Sepsis Current Visit: Yes Status: Acute Code(s): A41.9 - SEPSIS, UNSPECIFIED ORGANISM SNOMED Code(s): 03522049
[2020-06-26] MEDS: LURASIDONE 20 MG TAB PO SCH (22:14)
[2020-06-27] MEDS: ONDANSETRON 4 MG/2 ML VIAL IVP SCH ×4 (00:24→17:09)
[2020-06-27] MEDS: ACETAMINOPHEN TAB 500 MG TAB PO SCH ×4 (00:24→17:09)
[2020-06-27] MEDS: metroNIDAZOLE-NS PMX 500 MG in SALINE 1 100ML.BAG IVPB SCH ×4 (00:38→17:18)
[2020-06-27] MEDS: KETOROLAC 15 MG/ML 1 ML VIAL IVP SCH ×3 (02:34→13:51)
[2020-06-27] MEDS: PIPERACILLIN-TAZOBACTAM 3.375 GM in SODIUM CHLORIDE 0.9% 100 ML IVPB SCH ×2 (04:43→12:44)
[2020-06-27] MEDS: SYMBICORT 160-4.5 MCG INHALER INHALATION SCH (07:31)
[2020-06-27] MEDS: ALBUTEROL NEBULIZED 2.5 MG/3 ML INHALATION SCH ×3 (07:31→16:07)
[2020-06-27] MEDS: METHYLPHENIDATE HCL 10 MG TAB PO SCH ×3 (07:45→17:18)
[2020-06-27] MEDS: lisinopriL 20 MG TAB PO SCH (07:46)
[2020-06-27] MEDS: ENOXAPARIN 30 MG/0.3 ML SYRINGE SQ SCH (07:46)
[2020-06-27] MEDS: PANTOPRAZOLE 40 MG/10 ML VIAL IV SCH (07:46)
[2020-06-27] MEDS: HYDROcodone/APAP 10-325MG 1 EACH TAB PO PRN ×2 (07:48→17:18)
[2020-06-27 07:59] LABS: Basophils % (A) 0 %; Eosinophils # (A) 0.2 k/uL (0-0.7); Eosinophils % (A) 2 %; HCT 34.2 % (39.0-53.0); Lymphocytes # (A) 0.9 k/uL (1.0-4.8); Lymphocytes % (A) 7 %; MCH 31.1 pg (25.0-35.0); MCV 88.6 fL (80.0-100.0); Mean Platelet Volume 7.3; Monocytes # (A) 0.5 k/uL (0-1.0); Monocytes % (A) 4 %; Neutrophils # (A) 10.7 k/uL (1.3-7.7); Neutrophils % (A) 86 %; Platelet Count 182 k/uL (150-450); RBC 3.86 m/uL (4.30-5.90); RDW 12.8 % (11.5-15.5); WBC 12.4 k/uL (3.8-10.6)
[2020-06-27 08:15] LABS: ALT 18 U/L (4-49); AST 22 U/L (17-59); African American GFR (CKD) >90 (>60 ml/min/1.73 sqM); Albumin/Globulin Ratio 1.2; Alkaline Phosphatase 71 U/L (38-126); Anion Gap 5 mmol/L; Blood Urea Nitrogen 18 mg/dL (9-20); Calcium 8.5 mg/dL (8.4-10.2); Carbon Dioxide 23 mmol/L (22-30); Chloride 107 mmol/L (98-107); Globulin 2.6 g/dL; Glucose 102 mg/dL (74-99); Non-African American GFR(CKD) 88 (>60 ml/min/1.73 sqM); Potassium 3.8 mmol/L (3.5-5.1); Sodium 135 mmol/L (137-145); Total Protein 5.6 g/dL (6.3-8.2)
[2020-06-27] MEDS: SODIUM CHLORIDE 0.9% 1,000 ML IV SCH (12:44)
--- NOTE | 2020-06-27 14:21 | P.PN ---
Progress Note - Text Progress Note Date: 06/27/20 Patient feels well. His white count is 12. On exam vitals are stable. Abdomen soft. Her patient IV antibiotic. We'll plan for discharge tomorrow.
[2020-06-27 15:18] VITALS: BP 132/72; TEMP 97.6
[2020-06-27 16:07] VITALS: PULSE 80; RESP 16
[2020-06-27 17:30] LABS: Basophils % (A) 0 %; Eosinophils # (A) 0.3 k/uL (0-0.7); Eosinophils % (A) 3 %; HCT 33.9 % (39.0-53.0); HGB 11.7 gm/dL (13.0-17.5); Lymphocytes # (A) 0.9 k/uL (1.0-4.8); Lymphocytes % (A) 9 %; MCH 30.6 pg (25.0-35.0); MCHC 34.6 g/dL (31.0-37.0); MCV 88.5 fL (80.0-100.0); Mean Platelet Volume 7.7; Monocytes # (A) 0.6 k/uL (0-1.0); Monocytes % (A) 6 %; Neutrophils # (A) 8.1 k/uL (1.3-7.7); Neutrophils % (A) 82 %; Platelet Count 192 k/uL (150-450); RBC 3.83 m/uL (4.30-5.90); RDW 12.8 % (11.5-15.5); WBC 9.9 k/uL (3.8-10.6)
--- NOTE | 2020-06-27 21:30 | P.DS ---
Providers Date of admission: 06/25/20 18:58 Expected date of discharge: 06/27/20 Attending physician: Divina Maynard Primary care physician: Bri Turner - Discharge Diagnosis(es) (1) Ruptured appendicitis Status: Acute (2) Sepsis Status: Acute (3) Tobacco abuse Status: Acute (4) Hypertensive heart disease Status: Acute Hospital Course: Postoperative Diagnosis: 1. Acute retrocecal appendicitis with rupture, localized abscess with peritonitis and sepsis 2. Right lower quadrant abdominal pain 3. Chronic obstructive pulmonary disease 4. Chronic pain syndrome 5. Depressive disorder 6. Generalized anxiety disorder 7. Hypertensive heart disease 8. Tobacco abuse disorder 9. Fevers COURSE: The patient is a 44-year-old male who presented with acute appendicitis including sepsis. He had findings of ruptured appendicitis and was maintained on antibiotics. Prior to discharge, he was tolerating diet. His pain was controlled. Procedures: Procedure(s) Performed: 1. Robotic-assisted daVinci Xi laparoscopic appendectomy Anesthesia: GETA, local Estimated Blood Loss (ml): 5 Pathology: other (appendix), aerobic and anaerobic culture Condition: stable Disposition: floor Operative Findings: 1. Acute retrocecal appendicitis with localized rupture at the tip with peritonitis 2. Terminal ileum unremarkable 3. Cecum unremarkable 4. Small indirect left inguinal hernia 5. No intra-abdominal adhesions from prior abdominal exploratory laparotomy Patient Condition at Discharge: Good Plan - Discharge Summary Discharge Rx Participant: No New Discharge Prescriptions: New Acetaminophen Tab [Tylenol Tab] 1,000 mg PO Q6HR PRN #30 tablet PRN Reason: Pain Amoxic-Pot Clav 875-125Mg [Augmentin 875-125] 1 tab PO BID #10 tab Ibuprofen [Motrin] 600 mg PO Q8HR PRN #30 tab PRN Reason: Pain Continue HYDROcodone/APAP 10-325MG [[place] 10-325] 1 tab PO Q6H PRN PRN Reason: Pain Diazepam [Valium] 10 mg PO BID PRN PRN Reason: PAIN/ANXIETY Methylphenidate HCl [Ritalin] 20 mg PO TID Albuterol Nebulized [Ventolin Nebulized] 2.5 mg INHALATION RT-QID Budesonide-Formot 160-4.5 Mcg [Symbicort 160-4.5 Mcg Inhaler] 2 puff INHALATION RT-BID Albuterol Sulfate [Proair Hfa] 2 puff INHALATION RT-Q4H PRN PRN Reason: Shortness Of Breath lisinopriL 20 mg PO DAILY Lurasidone HCl [Latuda] 60 mg PO HS Cetirizine HCl 10 mg PO HS PRN PRN Reason: Allergy Symptoms Discontinued Naloxone HCl [Narcan] 1 spray EA NOSTRIL ONCE PRN PRN Reason: OVERDOSE Discharge Medication List Diazepam [Valium] 10 mg PO BID PRN 09/28/14 [History] HYDROcodone/APAP 10-325MG [[place] 10-325] 1 tab PO Q6H PRN 09/28/14 [History] Albuterol Nebulized [Ventolin Nebulized] 2.5 mg INHALATION RT-QID 06/25/20 [History] Albuterol Sulfate [Proair Hfa] 2 puff INHALATION RT-Q4H PRN 06/25/20 [History] Budesonide-Formot 160-4.5 Mcg [Symbicort 160-4.5 Mcg Inhaler] 2 puff INHALATION RT-BID 06/25/20 [History] Cetirizine HCl 10 mg PO HS PRN 06/25/20 [History] Lurasidone HCl [Latuda] 60 mg PO HS 06/25/20 [History] Methylphenidate HCl [Ritalin] 20 mg PO TID 06/25/20 [History] lisinopriL 20 mg PO DAILY 06/25/20 [History] Acetaminophen Tab [Tylenol Tab] 1,000 mg PO Q6HR PRN #30 tablet 06/27/20 [Rx] Amoxic-Pot Clav 875-125Mg [Augmentin 875-125] 1 tab PO BID #10 tab 06/27/20 [Rx] Ibuprofen [Motrin] 600 mg PO Q8HR PRN #30 tab 06/27/20 [Rx] Follow up Appointment(s)/Referral(s): Divina Maynard MD [STAFF PHYSICIAN] - 06/30/20 Bri Turner MD [Primary Care Provider] - 1-2 days Patient Instructions/Handouts: How to Stop Smoking (DC), Appendicitis (GEN), Sepsis (GEN), Peritonitis (DC), Laparoscopic Appendectomy (DC) Activity/Diet/Wound Care/Special Instructions: DO NOT REMOVE DRESSING YOU MAY RESUME ALL HOME MEDICATIONS INCLUDING NARCAN NEEDED AVOID SMOKING WHILE HEALING FOR 2 WEEKS No lifting over 10 pounds in 2 weeks until July 09July shower. No bath tub soaks for two weeks until July 09 Diet as tolerated. Use Tylenol and ibuprofen or Aleve scheduled for the next 24-48 hours for best pain relief. Use ice along incisions for today to prevent swelling. Discharge Disposition: HOME SELF-CARE
== END 2020-06-27 18:47 | disposition home or self-care (01) | DRG 853 ==
LOC: EC 23:46 → 5NMEDONC 06-25 01:29 → 6NMEDSUR 06-25 14:52 → OBSVTOIN 06-25 18:58
PROVIDERS: ADMIT Surgery Plastic and Reconstructive Surgery; ATTEND Surgery Plastic and Reconstructive Surgery
PROC: 0DTJ4ZZ Resection of Appendix, Percutaneous Endoscopic Approach (ICD-10-PCS; principal; 2020-06-25 09:40)
PROC: 8E0W4CZ Robotic Assisted Procedure of Trunk Region, Percutaneous Endoscopic Approach (ICD-10-PCS; principal; 2020-06-25 09:40)
DX: A41.9 Sepsis, unspecified organism (principal); K35.32 Acute appendicitis with perforation, localized peritonitis, and gangrene, without abscess; I11.9 Hypertensive heart disease without heart failure; J44.9 Chronic obstructive pulmonary disease, unspecified; Z20.822 Contact with and (suspected) exposure to COVID-19; K40.90 Unilateral inguinal hernia, without obstruction or gangrene, not specified as recurrent; G89.4 Chronic pain syndrome; F32.9 Major depressive disorder, single episode, unspecified; F41.1 Generalized anxiety disorder; M54.41 Lumbago with sciatica, right side; M54.42 Lumbago with sciatica, left side; F17.210 Nicotine dependence, cigarettes, uncomplicated; Z79.51 Long term (current) use of inhaled steroids; Z79.899 Other long term (current) drug therapy; Z87.19 Personal history of other diseases of the digestive system; Z83.3 Family history of diabetes mellitus
CPT/HCPCS: 36415; 74177; 80053; 81001; 82150; 83690; 85025; 87070; 87075; 87077; 87186; 87205; 87635; 88304; 93005; 94640; 94760; 96361; 96374; 96375; 99285

== ENCOUNTER 2021-12-23 21:43 | Emergency (ER) | payer OTHER ==
[2021-12-23] MEDS ORDERED: HYDROmorphone 1 MG/ML 1 ML SYRINGE IVP STA (21:45)
[2021-12-23] MEDS ORDERED: SODIUM CHLORIDE 0.9% 1,000 ML IV STA ×2 (21:45)
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
[2021-12-23 21:54] LABS: Glucose,Whole Blood 110 mg/dL (70-110)
[2021-12-23 22:06] LABS: Basophils % (A) 0 %; Eosinophils # (A) 0.1 k/uL (0-0.7); Eosinophils % (A) 1 %; HCT 35.5 % (39.0-53.0); HGB 11.7 gm/dL (13.0-17.5); Lymphocytes # (A) 2.2 k/uL (1.0-4.8); Lymphocytes % (A) 10 %; MCH 28.9 pg (25.0-35.0); MCV 87.4 fL (80.0-100.0); Mean Platelet Volume 7.9; Monocytes # (A) 0.6 k/uL (0-1.0); Monocytes % (A) 3 %; Neutrophils # (A) 17.9 k/uL (1.3-7.7); Neutrophils % (A) 86 %; Platelet Count 339 k/uL (150-450); RBC 4.06 m/uL (4.30-5.90); WBC 20.9 k/uL (3.8-10.6)
[2021-12-23 22:21] LABS: ALT 466 U/L (4-49); AST 533 U/L (17-59); African American GFR (CKD) 83 (>60 ml/min/1.73 sqM); Albumin 3.6 g/dL (3.5-5.0); Alcohol <10 mg/dL; Alkaline Phosphatase 79 U/L (38-126); Anion Gap 13 mmol/L; Blood Urea Nitrogen 20 mg/dL (9-20); Calcium 8.3 mg/dL (8.4-10.2); Carbon Dioxide 20 mmol/L (22-30); Chloride 106 mmol/L (98-107); Glucose 104 mg/dL (74-99); Non-African American GFR(CKD) 72 (>60 ml/min/1.73 sqM); Potassium 3.4 mmol/L (3.5-5.1); Sodium 139 mmol/L (137-145); Total Bilirubin 0.7 mg/dL (0.2-1.3); Total Protein 5.9 g/dL (6.3-8.2)
[2021-12-23 22:26] LABS: Prothrombin Time 10.9 sec (9.0-12.0)
[2021-12-23 22:29] LABS: Partial Thromboplastin Time 21.4 sec (22.0-30.0)
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
[2021-12-24] MEDS ORDERED: HYDROmorphone 1 MG/ML 1 ML SYRINGE IVP STA (00:05)
[2021-12-24] MEDS ORDERED: MIDAZOLAM 1 MG/ML 5 ML VIAL IV STA (00:05)
[2021-12-24] MEDS ORDERED: LIDOCAINE 1%-EPI 1:100,000 20 ML VIAL SUBMUCOSAL STA (00:07)
--- NOTE | 2021-12-24 00:17 | XR ---
EXAMINATION TYPE: XR knee limited RT DATE OF EXAM: 12/23/2021 COMPARISON: NONE HISTORY: Trauma. Laceration TECHNIQUE: Single view FINDINGS: A single lateral view was obtained. No fractures seen. Detail limited by bandages over the anterior knee. There is knee flexion positioning. No sign of a joint effusion. No obvious fracture. IMPRESSION: Limited exam shows no fracture and no sign of a foreign body.
[2021-12-24 00:45] VITALS: TEMP 97
[2021-12-24 00:55] VITALS: BP 117/75; PULSE 89; RESP 18
--- NOTE | 2021-12-24 01:01 | XR ---
EXAMINATION TYPE: XR Hip Limited RT DATE OF EXAM: 12/24/2021 COMPARISON: NONE HISTORY: Trauma. Pain post reduction. TECHNIQUE: Single view FINDINGS: There is posterior dislocation of the right femoral head. There is a large acetabular chip fracture. IMPRESSION: Persistent dislocated right hip joint.
--- NOTE | 2021-12-24 01:31 | XR ---
EXAMINATION TYPE: XR chest 1V portable DATE OF EXAM: 12/24/2021 COMPARISON: 12/23/2021 HISTORY: Short of breath TECHNIQUE: Single view FINDINGS: There are bilateral chest tubes. There is small left-sided pneumothorax probably less than 3%. Trachea is midline. There are some interstitial infiltrates in both lung floyd. Heart size is no rmal. IMPRESSION: Increased pulmonary interstitial infiltrates compared to recent exam 3 hours ago. Chest t ubes appear in good position. Very small left-sided pneumothorax.
== END 2021-12-24 00:49 | disposition other institution (70) ==
LOC: EC 21:43
DX: S72.002A Fracture of unspecified part of neck of left femur, initial encounter for closed fracture (principal); S72.001A Fracture of unspecified part of neck of right femur, initial encounter for closed fracture; S22.43XA Multiple fractures of ribs, bilateral, initial encounter for closed fracture; S73.004A Unspecified dislocation of right hip, initial encounter; S81.011A Laceration without foreign body, right knee, initial encounter; S36.113A Laceration of liver, unspecified degree, initial encounter; J93.9 Pneumothorax, unspecified; J44.9 Chronic obstructive pulmonary disease, unspecified; I10 Essential (primary) hypertension; F17.200 Nicotine dependence, unspecified, uncomplicated; Z79.899 Other long term (current) drug therapy; V89.2XXA Person injured in unspecified motor-vehicle accident, traffic, initial encounter
CPT/HCPCS: 99291; 32551; 27250; 96374; 96361; 36415; 93005; 86900; 86901; 80053; 84484; 85025; 85610; 85730; 86850; 86920; 80320; 72170; 73501; 73560; 71045 ×2; 72125; 70450; 71260; 74177; P9016; J2250; J1170; Q9967